=== PATIENT | male | born 1990 | race Caucasian/White ===

== ENCOUNTER 2019-10-29 11:36 | Emergency (ER) | payer BC, OTHER ==
[2019-10-29 11:46] VITALS: TEMP 98.3; BMI 39.0
[2019-10-29] MEDS ORDERED: ALBUTEROL SO4 2.5/IPRATROPIUM 0.5 INH SOL 3 ML VIAL.NEB. NEB ONE ×2 (12:00→12:50)
--- NOTE | 2019-10-29 12:00 | PDOC ---
History of Present Illness - General Chief Complaint: Asthma Stated Complaint: WHEEZING Time Seen by Provider: 10/29/19 11:38 History Source: Patient Exam Limitations: No Limitations - History of Present Illness Initial Comments: 28 yo M history asthma presents with difficulty breathing for the past 2 days. He states he has been using his rescue inhaler regularly, but without relief. + Dry cough, congestion. No fever, cp. +Chest tightness. Past History - Past Medical History Allergies/Adverse Reactions: Allergies Allergy/AdvReac Type Severity Reaction Status Date / Time latex Allergy Verified 10/29/19 11:46 LAT Allergy Uncoded 10/29/19 11:46 Home Medications: Ambulatory Orders Levalbuterol HCl [Xopenex] 0.31 mg IH PRN PRN 02/04/14 predniSONE [Deltasone -] 40 mg PO DAILY #8 tablet 10/29/19 Asthma: Yes COPD: No - Immunization History Immunization Up to Date: Yes - Psycho Social/Smoking Cessation Hx Smoking History: Never smoked Have you smoked in the past 12 months: No Information on smoking cessation initiated: No Hx Alcohol Use: No Drug/Substance Use Hx: No Substance Use Type: None Review of Systems - Review of Systems Able to Perform ROS?: Yes Comments:: GENERAL/CONSTITUTIONAL: No fever or chills. No weakness. HEAD, EYES, EARS, NOSE AND THROAT: No change in vision. No ear pain or discharge. No sore throat. CARDIOVASCULAR: +Chest tightness, +shortness of breath. RESPIRATORY: +Dry cough. No wheezing or hemoptysis. GASTROINTESTINAL: No nausea, vomiting, diarrhea or constipation. GENITOURINARY: No dysuria, frequency, or change in urination. MUSCULOSKELETAL: No joint or muscle swelling or pain. No neck or back pain. SKIN: No rash. NEUROLOGIC: No headache, vertigo, loss of consciousness, or change in strength/ sensation. ENDOCRINE: No increased thirst. No abnormal weight change. HEMATOLOGIC/LYMPHATIC: No anemia, easy bleeding, or history of blood clots. ALLERGIC/IMMUNOLOGIC: No hives or skin allergy. *Physical Exam - Vital Signs Last Vital Signs Temp Pulse Resp BP Pulse Ox 98.3 F 113 H 22 H 153/106 H 94 L 10/29/19 11:37 10/29/19 11:37 10/29/19 11:37 10/29/19 11:37 10/29/19 11:37 - Physical Exam GENERAL: Awake, alert, and fully oriented, in no acute distress HEAD: No signs of trauma EYES: PERRLA, EOMI, sclera anicteric, conjunctiva clear ENT: Auricles normal inspection, hearing grossly normal, nares patent, oropharynx clear without exudates. Moist mucosa NECK: Normal ROM, supple, no lymphadenopathy, JVD, or masses LUNGS: Dec air entry B/L with prolonged exp phase. No wheezes/rales/rhonchi HEART: Regular rate and rhythm, normal S1 and S2, no murmurs, rubs or gallops ABDOMEN: Soft, nontender, normoactive bowel sounds. No guarding, no rebound. No masses EXTREMITIES: Normal range of motion, no edema. No clubbing or cyanosis. No cords, erythema, or tenderness NEUROLOGICAL: Cranial nerves II through XII grossly intact. Normal speech, normal gait. Motor and sensation intact SKIN: Warm, dry, normal turgor, no rashes or lesions noted. Medical Decision Making - Medical Decision Making Pt presents with asthma exacerbation, likely secondary to viral illness. Will give nebs and steroids. Likely DC home. 10/29/19 13:40 Pt improved with nebs and steroids. Stable for DC home. Discharge - Discharge Information Problems reviewed: Yes Clinical Impression/Diagnosis: Asthma Qualifiers: Asthma severity: unspecified severity Asthma persistence: unspecified Asthma complication type: unspecified Qualified Code(s): J45.909 - Unspecified asthma, uncomplicated Condition: Good Disposition: HOME - Admission No - Additional Discharge Information Prescriptions: predniSONE [Deltasone -] 40 mg PO DAILY #8 tablet - Follow up/Referral Referrals: Loc Tom MD [Primary Care Provider] - - Patient Discharge Instructions Patient Printed Discharge Instructions: DI for Asthma -- Adult - Post Discharge Activity
[2019-10-29] MEDS: ALBUTEROL SO4 2.5/IPRATROPIUM 0.5 INH SOL 3 ML VIAL.NEB. NEB SCH ×3 (12:03→12:48)
[2019-10-29] MEDS ORDERED: predniSONE 20 MG TABLET (UD) PO ONE (12:14)
[2019-10-29] MEDS ORDERED: predniSONE 20 MG TABLET (UD) ONE (12:50)
[2019-10-29 13:53] VITALS: BP 160/114; PULSE 116
== END 2019-10-29 13:53 | disposition home or self-care (01) ==
LOC: FER 11:36
PROC: 3E0F7GC Introduction of Other Therapeutic Substance into Respiratory Tract, Via Natural or Artificial Opening (ICD-10-PCS; principal; 2019-10-29)
DX: J45.909 Unspecified asthma, uncomplicated (principal); Z91.040 Latex allergy status
CPT/HCPCS: 94640; 99285-25